=== PATIENT | male | born 1995 | race African-American/Black ===

== ENCOUNTER 2018-11-08 23:28 | Emergency (ER) | payer OTHER ==
[~2018-11-08] VITALS: Ht 175.3 cm; Wt 78.0 kg
[2018-11-08 23:34] VITALS: BP 145/78
== END 2018-11-09 01:15 | disposition left against medical advice (07) ==
LOC: ER 23:28
DX: M54.5 Low back pain (principal); Z53.21 Procedure and treatment not carried out due to patient leaving prior to being seen by health care provider